=== PATIENT | female | born 1980 | race Caucasian/White ===

== ENCOUNTER 2022-07-18 13:24 | Emergency (ER) | payer BC, OTHER ==
--- NOTE | 2022-07-18 13:29 | ERPHSYRPT ---
- History of Present Illness Time Seen by Provider: 07/18/22 13:29 Source: patient Exam Limitations: no limitations Physician History: This is a 41-year-old white female who is a pharmacy salesperson at [employer] and while giving a influenza vaccine, she accidentally stuck herself with a needle in her left thumb. Immediately she washed the area with soap and water and applied a Band-Aid. She presents to the emergency department asymptomatic but here for evaluation and lab draws. Patient states she is not . She does not intend to get . Her has had a vasectomy. Timing/Duration: today Severity: mild Modifying Factors: Improves With: nothing Associated Symptoms: denies symptoms Allergies/Adverse Reactions: No Known Drug Allergies Allergy (Verified 07/18/22 13:50) Hx Influenza Vaccination/Date Given: No Hx Pneumococcal Vaccination/Date Given: No Travel Risk - International Travel Have you traveled outside of the country in past 3 weeks: No - Coronavirus Screening Are you exhibiting any of the following symptoms?: No Close contact with a COVID-19 positive Pt in past 14-21 Days: No - Review of Systems Constitutional: No Symptoms Eyes: No Symptoms Ears, Nose, & Throat: No Symptoms Respiratory: No Symptoms Cardiac: No Symptoms Abdominal/Gastrointestinal: No Symptoms Genitourinary Symptoms: No Symptoms Musculoskeletal: Other (Accidental needlestick left thumb) Skin: Other (Accidental needlestick left thumb) Neurological: No Symptoms Psychological: No Symptoms Endocrine: No Symptoms Hematologic/Lymphatic: No Symptoms Immunological/Allergic: No Symptoms All Other Systems: Reviewed and Negative - Past Medical History Pertinent Past Medical History: Yes ENT History: No Pertinent History Cardiac History: No Pertinent History Respiratory History: No Pertinent History Endocrine Medical History: No Pertinent History Musculoskeletal History: No Pertinent History GI Medical History: Gallbladder Disease History: No Pertinent History Psycho-Social History: No Pertinent History Female Reproductive Disorders: No Pertinent History - Past Surgical History Past Surgical History: Yes Neuro Surgical History: No Pertinent History Cardiac: No Pertinent History Respiratory: No Pertinent History Gastrointestinal: Appendectomy Genitourinary: No Pertinent History Musculoskeletal: No Pertinent History Female Surgical History: No Pertinent History Other Surgical History: tonsil - Social History Smoking Status: Never smoker How long have you smoked: 12 Exposure to second hand smoke: Yes Drug Use: none - Nursing Vital Signs Nursing Vital Signs: Initial Vital Signs Temperature 97.2 F 07/18/22 13:41 Pulse Rate 78 10/20/22 13:41 Respiratory Rate 18 07/18/22 13:41 Blood Pressure 185/104 07/18/22 13:41 O2 Sat by Pulse Oximetry 98 07/18/22 13:41 Pain Scale Pain Intensity 0 - Physical Exam General Appearance: no apparent distress, alert Eye Exam: PERRL/EOMI, eyes nml inspection Ears, Nose, Throat Exam: normal ENT inspection, moist mucous membranes Neck Exam: normal inspection, non-tender, supple, full range of motion Respiratory Exam: normal breath sounds, lungs clear, airway intact, No chest tenderness, No respiratory distress Cardiovascular Exam: regular rate/rhythm, normal heart sounds, normal peripheral pulses Gastrointestinal/Abdomen Exam: No tenderness Pelvic Exam: not done Rectal Exam: not done Back Exam: normal inspection, normal range of motion, No CVA tenderness, No vertebral tenderness Extremity Exam: normal inspection, normal range of motion, pelvis stable Neurologic Exam: alert, oriented x 3, cooperative, 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, normal mood/affect, nml cerebellar function, nml station & gait, sensation nml Skin Exam: normal color, warm, dry Lymphatic Exam: No adenopathy SpO2 Interpretation: normal O2 Delivery: Room Air - Course Nursing assessment & vital signs reviewed: Yes Ordered Tests: Active Orders 24 hr Category Date Time Status Wound Care STAT Care 07/18/22 13:56 Active Wound Care STAT Care 07/18/22 14:18 Active Medication Summary Generic Name Dose Route Start Last Admin Trade Name Freq PRN Reason Stop Dose Admin Raltegravir 400 mg 07/18/22 14:30 07/18/22 14:23 Raltegravir Potassium 400 Mg Tablet PO 08/17/22 14:29 400 mg STAT LEXUS Administration Discontinued Medications Generic Name Dose Route Start Last Admin Trade Name Freq PRN Reason Stop Dose Admin Emtricitabine/Tenofovir 1 tablet 07/18/22 14:17 07/18/22 14:23 Emtricitabine/Tenofovir 1 Tablet PO 07/18/22 14:18 1 tablet STAT STA Administration Ondansetron HCl 4 mg 07/18/22 14:27 Zofran 4 Mg/Udtablet Orally Disintegrating PO 07/18/22 14:28 STAT ONE - Departure Departure Disposition: Home Clinical Impression: Accidental hypodermic needlestick injury Condition: Stable Critical Care Time: No Referrals: DENNIS-MARIAH,SABINO [Primary Care Provider] - Follow up/PCP as directed Additional Instructions: Keep needlestick site clean daily with soap and water. Take your medication as prescribed. Follow-up with your primary care provider for further evaluation management. Prescriptions: Ondansetron ODT 4 MG [Zofran Odt 4 mg] 4 mg PO Q6H PRN PRN #10 tablet PRN Reason: Vomiting
[2022-07-18] MEDS ORDERED: TRUVADA 200 MG-300 MG TABLET PO STA (14:17)
[2022-07-18] MEDS ORDERED: ZOFRAN ODT 4 MG PO ONE (14:27)
[2022-07-18] MEDS ORDERED: ISENTRESS PO SCH (14:30)
[2022-07-18] MEDS ORDERED: ZOFRAN ODT 4 MG ONE (14:36)
[2022-07-18 15:02] LABS: Hematocrit 41.3 % (35-47); Hemoglobin 13.3 g/dL (12.0-16.0); Mean Cell Volume 90.8 fL (78-100); Mean Corpuscular Hemoglobin 29.2 pg (26-32); Mean Corpuscular Hgb Concent. 32.2 g/dL (32-36); Mean Platelet Volume 8.7 fL (7.5-11.0); Platelet Count 306 x10^3/uL (150-450); Red Blood Count 4.55 x10^6/uL (4.1-5.4); Red Cell Distribution Width 12.7 % (11.5-14.0); White Blood Count 7.6 x10^3/uL (4.0-10.5)
[2022-07-18 15:20] LABS: ALBUMIN 4.4 g/dL (3.5-5.0); ALKALINE PHOSPHATASE 72 U/L (38-126); ANION GAP 9.2 MEQ/L (5-15); BLOOD UREA NITROGEN 4 mg/dL (7-17); CHLORIDE 105 mmol/L (98-107); Calcium 8.7 mg/dL (8.4-10.2); Carbon Dioxide 27 mmol/L (22-30); Creatinine 1 0.55 mg/dL (0.52-1.04); EST GLOMERULAR FILTRATION RATE > 60.0 ML/MIN; Glucose 119 mg/dL (74-106); Potassium 3.7 mmol/L (3.5-5.1); SGOT/AST 32 U/L (14-36); SGPT/ALT 37 U/L (0-35); SODIUM 137 mmol/L (137-145); Total Protein 7.5 g/dL (6.3-8.2)
[2022-07-18] MEDS ORDERED: Nabi-Hb 5 ML IM ONE (15:23)
[2022-07-18] MEDS ORDERED: ENGERIX-B 10 MCG PED: INSURANCE IM ONE ×2 (15:27→15:32)
[2022-07-18 15:57] VITALS: BP 190/95; PULSE 80; O2SAT 100
[2022-07-19 08:59] LABS: HBsAg Screen Negative (Negative); HIV Screen 4th Generation wRfx Non Reactive (Non Reactive); Hep B Surface Ab, Quant <3.1 mIU/mL (Immunity>9.9); Hep C Virus Ab <0.1 s/co ratio (0.0-0.9)
== END 2022-07-18 15:48 | disposition home or self-care (01) ==
LOC: ED 13:24
DX: S61.032A Puncture wound without foreign body of left thumb without damage to nail, initial encounter (principal); W26.8XXA Contact with other sharp object(s), not elsewhere classified, initial encounter; Y92.512 Supermarket, store or market as the place of occurrence of the external cause; Y99.0 Civilian activity done for income or pay; Z20.9 Contact with and (suspected) exposure to unspecified communicable disease
CPT/HCPCS: 36415; 80053; 84703; 85027; 86317; 87340; 87389; 99283; G0472; 86803; 90744; Q0162; A9270-GY